=== PATIENT | male | born 1955 | race Caucasian/White ===

== ENCOUNTER 2019-09-23 10:21 | Emergency (ER) | payer MEDICARE, OTHER ==
[2019-09-23] MEDS ORDERED: Ketorolac Tromethamine 30 MG/ML VIAL ONE (10:41)
[2019-09-23] MEDS ORDERED: Sodium Chloride 0.9% 1,000 ML ONE (10:41)
[2019-09-23] MEDS ORDERED: Ondansetron PF 4 MG/2 ML Vial ONE (10:53)
[2019-09-23 11:04] LABS: #Basophils 0.1 thou/uL (0.0-0.2); #Lymphocytes 0.7 thou/uL (1.20-3.40); #Monocytes 1.3 thou/uL (0.11-0.59); #Neutrophils 8.3 thou/uL (1.40-6.50); %Basophils 1.1 % (0.0-1.0); %Eosinophils 0.1 % (0.0-10.0); %Lymphocytes 6.8 % (21.0-51.0); %Monocytes 12.2 % (0.0-10.0); %Neutrophils 79.8 % (42.0-75.0); Hemoglobin 14.4 g/dL (14.0-18.0); Mean Corpuscular HGB CONC 33.3 g/dL (32.0-36.0); Mean Corpuscular Hemoglobin 28.9 pg (27.0-31.0); Mean Corpuscular Volume 86.8 fL (78.0-98.0); Mean Platelet Volume 7.1 fL (7.4-10.4); Platelet Count 407 thou/uL (130-400); RBC Distribution Width 14.8 % (11.5-14.5); Red Blood Cell (RBC) Count 4.97 mill/uL (4.70-6.10); White Blood Cell (WBC) Count 10.4 thou/uL (4.8-10.8)
[2019-09-23 11:19] LABS: ALT (SGPT) 30 U/L (8-55); AST (SGOT) 26 U/L (5-34); Albumin 3.4 g/dL (3.4-4.8); Alkaline Phosphatase 140 U/L (40-110); Anion Gap 17 mmol/L (10-20); BUN (Urea Nitrogen) 15 mg/dL (8.4-25.7); Bilirubin, Total 0.8 mg/dL (0.2-1.2); Calc. Creatinine Clearance 0 mL/min (70-130); Carbon Dioxide 20 mmol/L (23-31); Chloride 103 mmol/L (98-107); Estimated GFR-MDRD Greater than 90; Globulin 4.8 g/dL (2.4-3.5); Glucose 213 mg/dL (80-115); Protein, Total 8.2 g/dL (5.8-8.1); Sodium 136 mmol/L (136-145)
--- NOTE | 2019-09-23 11:24 | RAD ---
XR Chest 1 View Portable HISTORY: Dyspnea COMPARISON: 07/08/2012 FINDINGS: The heart size is normal. Chronic interstitial changes are seen. There is mild infiltrate a t the left lung base with probable small left effusion.
--- NOTE | 2019-09-23 11:26 | CT ---
CT Stone Protocol 09/23/2019 10:51 AM HISTORY: Left flank pain. Dysuria. History of kidney stones. COMPARISON: 04/03/2010 Technique: Multiple contiguous axial CT images are obtained through the abdomen and pelvis without IV contrast. Coronal reformats are provided. FINDINGS: This examination is limited for the evaluation of solid organs and vascular structures due to the lac k of intravenous contrast. Lower Chest: There are linear and groundglass densities at each lung base as well as parenchymal airs pace areas of consolidation posterior aspect of each lung base. Findings could be related to bibasilar pneumonia or aspiration pneumonitis. Follow-up to resolution is recommended. Abdomen: Liver: Grossly normal non-enhanced CT appearance. Gallbladder: Suggestion of punctate calculus gallbladder lumen. Pancreas: Atrophic but otherwise grossly normal nonenhanced CT appearance. Spleen: Grossly normal nonenhanced CT appearance. Adrenals: Grossly normal nonenhanced CT appearance. Kidneys: Nonobstructing 2 to 3 mm calculi in each kidney. No hydronephrosis is seen on the right, but there is mild to moderate left hydronephrosis. Ureters: Mild left hydroureter with ureteral calculus in the mid left ureter measuring 3 mm. No right ureteral calculus is seen.. Pelvis: Urinary bladder: within normal limits. Reproductive Organs: Prostate gland is enlarged measuring 5.5 cm in transverse dimensions. Lymph Nodes: No enlarged lymph nodes. Bowel: Moderate amount retained fecal material seen throughout the colon suggesting constipation. Appendix: The appendix is normal in caliber. Peritoneum: No free fluid, free air, or fluid collection. Retroperitoneum: within normal limits. Vessels: Vascular calcifications and atherosclerotic plaque are again seen in the abdominal aorta and involving the iliac arteries.. Abdominal Wall: Tiny fat-containing umbilical hernia. Bones: Degenerative changes are again seen in the spine. IMPRESSION: 1. Partially obstructing left mid ureteral calculus measuring 3 mm with resultant mild to moderate le ft hydronephrosis. 2. Nonobstructing bilateral renal calculi. 3. Areas of bibasilar consolidation which could be related to aspiration pneumonitis or bibasilar pne umonia. Follow-up to resolution is recommended. 4. Constipation. 5. Prominent atherosclerotic vascular calcifications and plaque in the abdominal aorta and iliac kari yury.
[2019-09-23 12:20] LABS: Bilirubin Negative (Negative); Blood, Urine Large (Negative); Clarity Slightly Cloudy (Clear); Glucose, Urine (Dipstick) Negative (Negative); Leukocyte Negative (Negative); Nitrite Negative (Negative); Protein, Urine (Dipstick) Negative (Neg-Trace)
[2019-09-23 12:25] LABS: Bacteria/HPF None Seen HPF (None Seen)
[2019-09-23] MEDS ORDERED: Sodium Chloride 0.9% 500 ML ONE (12:30)
[2019-09-23] MEDS ORDERED: Morphine 4 MG/ML VIAL ONE (12:52)
== END 2019-09-23 13:32 | disposition home or self-care (01) ==
LOC: NAV ERS 10:21
DX: N13.2 Hydronephrosis with renal and ureteral calculous obstruction (principal); J44.1 Chronic obstructive pulmonary disease with (acute) exacerbation; I10 Essential (primary) hypertension; I25.10 Atherosclerotic heart disease of native coronary artery without angina pectoris; E11.9 Type 2 diabetes mellitus without complications; E78.5 Hyperlipidemia, unspecified; E78.00 Pure hypercholesterolemia, unspecified; F41.9 Anxiety disorder, unspecified; Z87.891 Personal history of nicotine dependence
CPT/HCPCS: 71045; 74176; 80053; 81003; 81015; 84484; 85025; 87086; 93005; 94760; 96361; 96374; 96375; J1885; J2270; J2405; J7050; J7620